=== PATIENT | male | born 1985 ===

== ENCOUNTER 2018-04-21 00:07 | Emergency (ER) | payer OTHER ==
[2018-04-21 01:40] LABS: BASO % 0.3 % (0.0-2.0); EOS % 0.5 % (0.0-4.0); HEMOGLOBIN 15.6 g/dL (12.0-18.0); LYMPH # 1.5 K/uL (1.0-4.3); MEAN CELL VOLUME 90.7 fl (80.0-94.0); MEAN CORPUSCULAR HEMOGLOBIN 30.9 pg (27.0-31.0); MEAN CORPUSCULAR HGB CONC 34.1 g/dL (33.0-37.0); MEAN PLATELET VOLUME 7.4 fl (7.2-11.7); MONO # 0.5 K/uL (0.0-0.8); MONO % 7.2 % (0.0-10.0); NEUT # 5.3 K/uL (1.8-7.0); RBC 5.06 Mil/uL (4.40-5.90); RED CELL DISTRIBUTION WIDTH 13.8 % (11.5-14.5); WHITE BLOOD COUNT 7.4 K/uL (4.8-10.8)
[2018-04-21 01:50] LABS: BLOOD UREA NITROGEN 14 mg/dl (9-20); CALCIUM 9.6 mg/dL (8.4-10.2); GFR NON-AFRICAN AMERICAN > 60
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
[2018-04-21 04:17] LABS: BARBITURATES, UR NEGATIVE (NEGATIVE); BENZODIAZEPINES, UR NEGATIVE (NEGATIVE); OPIATES, UR NEGATIVE (NEGATIVE); PHENCYCLIDINE, UR NEGATIVE (NEGATIVE)
[2018-04-21 07:06] LABS: URINE BACTERIA RARE (<OCC); URINE BILIRUBIN NEGATIVE (NEGATIVE); URINE BLOOD NEGATIVE (NEGATIVE); URINE CLARITY CLOUDY (Clear); URINE COLOR YELLOW (YELLOW); URINE GLUCOSE (UA) NEG (Normal); URINE HYALINE CAST >20 /hpf (0-2); URINE LEUKOCYTE ESTERASE NEG Leu/uL (Negative); URINE PROTEIN 30 mg/dL (NEGATIVE); URINE UROBILINOGEN 0.2-1.0 mg/dL (0.2-1.0)
--- NOTE | 2018-04-21 07:29 | ED PDOC ---
- Laboratory Results Result Diagrams: 04/21/18 01:25 04/21/18 01:25 - ECG O2 Sat by Pulse Oximetry: 99 (RA) Medical Decision Making Medical Decision Making: endorsed at 7am from Dr Merlos, 32yo w chronic schizophrenia awaiting [facility] screen [id number] accepted for involuntary admission by [facility] awaiting bed CXR official read no acute infiltrate, trace fibrotic changes apices Disposition - Clinical Impression Clinical Impression: Psychosis - Disposition Forms: [facility] ([place])
--- NOTE | 2018-04-21 08:44 | RAD ---
Date of service: 04/21/2018 HISTORY: clearance COMPARISON: No prior. TECHNIQUE: Chest PA and lateral FINDINGS: LUNGS: No acute airspace disease identified bilaterally. Trace fibrotic changes are suggested at the bilateral apices. PLEURA: No significant pleural effusion identified. No pneumothorax apparent. CARDIOVASCULAR: No aortic atherosclerotic calcification present. Normal cardiac size. No pulmonary vascular congestion. OSSEOUS STRUCTURES: No significant abnormalities. VISUALIZED UPPER ABDOMEN: Normal. OTHER FINDINGS: None. IMPRESSION: No acute cardiopulmonary is appreciable. Trace fibrotic changes suggested at the bilateral apices.
--- NOTE | 2018-04-21 09:09 | CARD ---
APPROVED REPORT Date of service: 04/21/2018 EKG Measurement Heart [id number] ID [id number] <Conclusion> Sinus tachycardia Otherwise normal ECG
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
--- NOTE | 2018-04-21 18:04 | ED PDOC ---
- Laboratory Results Result Diagrams: 04/21/18 01:25 04/21/18 01:25 - ECG O2 Sat by Pulse Oximetry: 98 - Progress ED Course And Treament: 1500: Took over care from Dr. Mensah. Pending [facility]. 7014: Dr. Rojas to take over care. Disposition - Clinical Impression Clinical Impression: Psychosis - POA Present On Arrival: None - Disposition Disposition: Transfer of Care Disposition Time: 23:42 Condition: STABLE
[2018-04-21 19:35] VITALS: RESP 18
[2018-04-22 00:15] VITALS: BP 101/67; PULSE 85; TEMP 97.6
--- NOTE | 2018-04-22 00:25 | ED PDOC ---
- Laboratory Results Result Diagrams: 04/21/18 01:25 04/21/18 01:25 - ECG O2 Sat by Pulse Oximetry: 99 (RA) Pulse Ox Interpretation: Normal Medical Decision Making Medical Decision Making: Time: 13 -- Received endorsement from Dr. Alonzo, pending bed assignment 010 --Patient was transferred without incident to [facility] Scribe Attestation: Documented by Srini Watson, acting as a scribe for Romario Rojas MD. Provider Scribe Attestation: All medical record entries made by the Scribe were at my direction and personally dictated by me. I have reviewed the chart and agree that the record accurately reflects my personal performance of the history, physical exam, medical decision making, and the department course for this patient. I have also personally directed, reviewed, and agree with the discharge instructions and disposition. Disposition - Clinical Impression Clinical Impression: Psychosis - POA Present On Arrival: None - Disposition Disposition: Other Institution ([facility]) Disposition Time: 01:00 Condition: STABLE Forms: [facility] (Lao)
[2018-04-22] MEDS ORDERED: Risperidone M tab 1 MG PO ONE (12:37)
[2018-04-22 23:43] VITALS: O2SAT 98
== END 2018-04-22 00:40 | disposition short-term general hospital (02) ==
LOC: H.ER 00:07
DX: F29 Unspecified psychosis not due to a substance or known physiological condition (principal); F20.9 Schizophrenia, unspecified; Z91.14 Patient's other noncompliance with medication regimen